=== PATIENT | male | born 1970 | race Caucasian/White ===

== ENCOUNTER 2016-10-19 21:08 | Inpatient (IN) | payer MEDICAID ==
[~2016-10-19] VITALS: Ht 188 cm; Wt 120.4 kg
[~2016-10-19 21:08] MED LIST: DICY10CA60 PO; ONDA4TAB35 PO
[2016-10-19] MEDS ORDERED: ONDANSETRON 4 MG INJ IV STA (21:13)
[2016-10-19] MEDS ORDERED: ASPIRIN 325 MG TAB PO STA (21:13)
[2016-10-19 21:34] LABS: ADD SCAN DIFF NO
[2016-10-19 21:37] LABS: BASOPHILS % 0.3 % (0.0-2.0); EOSINOPHILS # 0.1 10^3/ul (0.0-0.5); EOSINOPHILS % 0.9 % (0.0-7.0); HEMATOCRIT 48.4 % (42.0-52.0); LYMPHOCYTES # 4.5 10^3/ul (0.8-2.9); MEAN CORPUSCULAR HEMOGLOBIN 29.7 pg (29.0-33.0); MEAN CORPUSCULAR HGB CONC 35.1 g/dl (32.0-37.0); MEAN CORPUSCULAR VOLUME 84.6 fl (82.0-101.0); MEAN PLATELET VOLUME 10.3 fl (7.4-10.4); MONOCYTE # 0.8 10^3/ul (0.3-0.9); MONOCYTES % 6.5 % (0.0-11.0); NEUTROPHIL # 6.4 10^3/ul (1.6-7.5); PLATELET COUNT 385 10^3/UL (140-415); RED BLOOD COUNT 5.72 10^6/ul (4.70-6.10); RED CELL DISTRIBUTION WIDTH 11.9 % (11.5-14.5); WHITE BLOOD COUNT 11.8 10^3/ul (4.8-10.8)
[2016-10-19 21:56] LABS: INR 0.96; PARTIAL THROMBOPLASTIN TIME 20.9 Sec (25.0-35.0); PROTIME 12.8 Sec (12.2-14.2)
[2016-10-19 22:00] LABS: ANION GAP 15 (8-16); BLOOD UREA NITROGEN 15 mg/dl (7-20); CALCIUM 9.2 mg/dl (8.4-10.2); CARBON DIOXIDE 24 mmol/L (21-31); CHLORIDE 98 mmol/L (97-110); CREATININE 0.68 mg/dl (0.61-1.24); GLUCOSE 347 mg/dl (70-220); POTASSIUM 3.2 mmol/L (3.5-5.1); SODIUM 134 mmol/L (135-144)
[2016-10-19 22:08] LABS: B-TYPE NATRIURETIC PEPTIDE 25 PG/ML (0-125)
[2016-10-19 22:15] LABS: TROPONIN-I < 0.012 ng/ml (0.00-0.12)
--- NOTE | 2016-10-19 22:17 | RADRPT ---
PROCEDURE: XR Chest AP portable CLINICAL INDICATION: Chest pain TECHNIQUE: An AP portable radiograph of the chest was submitted. COMPARISON: 04/13/2015 FINDINGS: Support Hardware: None Cardiovascular: The cardiovascular silhouette appears unremarkable. Lung Ace: The lung ace appear clear with no nodule, alveolar infiltrate, or interstitial promi nence evident. Pleural Spaces: No pneumothorax or pleural effusion is identified. Osseous Structures: The osseous structures appear intact. Soft Tissues: The soft tissues appear generous. IMPRESSION: Stable and unremarkable portable chest. Physician [place] Date Time Electronically viewed and signed by Diana Christie Physician on 10/19/2016 22:17 /
[2016-10-19] MEDS ORDERED: BENA40TA41 PO (22:26)
[2016-10-19] MEDS ORDERED: MTF1000T PO (22:26)
[2016-10-19] MEDS ORDERED: BENA5TAB2 PO (22:26)
[2016-10-19] MEDS ORDERED: POTASSIUM CHLORIDE (SR) 20 MEQ TAB PO STA (23:59)
[2016-10-20] VITALS (13 sets, daily range): BP systolic 120–136; BP diastolic 69–82; PULSE 58–77; RESP 20; TEMP 98.4; Ht 188 cm; Wt 120.4 kg
[2016-10-20] MEDS ORDERED: SOD CHLORIDE 0.9% 1,000 ML IV ONE
--- NOTE | 2016-10-20 00:02 | ERA ---
ER Documentation Chief Complaint Date/Time DATE: 10/19/16 TIME: 23:56 Chief Complaint HAYES, DIAPHORESIS, N/V, CHEST PRESSURE 7/10 SINCE 6:30 PM HPI 46-year-old male with hypertension, diabetes, cholesterol presents with 2-1/2 hours of severe substernal chest pressure that is nonradiating, associated with diaphoresis, vomiting, shortness of breath. States that he was told he had a cardiac injury in the past. Was given 3 nitro doses in the ambulance which helped reduce the pain. Still feels chest pain and has just vomited. ROS All systems reviewed and are negative except as per history of present illness. Medications Home Meds Reported Medications Benazepril Hcl* (Benazepril Hcl*) 40 Mg Tablet, 40 MG PO DAILY, #30 TAB 10/19/16 Benazepril Hcl* (Benazepril Hcl*) 5 Mg Tablet, 5 MG PO DAILY, #30 TAB 10/19/16 Metformin* (Glucophage*) 1,000 Mg Tablet, 1000 MG PO BID, #60 TAB 10/19/16 Discontinued Scripts Ondansetron Hcl* (Zofran* ODT) 4 mg -ODT Tab.disper, 4 MG PO Q6 Y for NAUSEA AND /OR VOMITING, #30 TAB Prov:CARLIE ALEJANDRE MD 04/13/15 Dicyclomine Hcl* (Bentyl*) 10 Mg Capsule, 10 MG PO QID, #30 CAP Prov:CARLIE ALEJANDRE MD 04/13/15 Allergies Allergies: Coded Allergies: No Known Allergy (Unverified , 10/19/16) PMhx/Soc History of Surgery: Yes (L. FOOT) Anesthesia Reaction: No Hx Neurological Disorder: No Hx Respiratory Disorders: No Hx Cardiac Disorders: Yes (HTN, CARDIAC EVENT) Hx Psychiatric Problems: No Hx Miscellaneous Medical Probl: Yes (DM) Hx Alcohol Use: No Hx Substance Use: No Hx Tobacco Use: No Smoking Status: Never smoker Physical Exam Vitals Vital Signs Date Time Temp Pulse Resp B/P Pulse Ox O2 Delivery O2 Flow Rate FiO2 10/19/16 23:00 79 16 131/71 96 Nasal Cannula 3.0 10/19/16 21:22 Nasal Cannula 2 10/19/16 21:22 98.2 82 20 136/80 94 Physical Exam Const: [] Moderate distress, diaphoretic patient appearing very uncomfortable Head: Atraumatic Eyes: Normal Conjunctiva ENT: Normal External Ears, Nose and Mouth. Neck: Full range of motion..~ No meningismus. Resp: Clear to auscultation bilaterally Cardio: Regular rate and rhythm, no murmurs Abd: Soft, non tender, non distended. Normal bowel sounds Skin: No petechiae or rashes Back: No midline or flank tenderness Ext: No cyanosis, or edema Neur: Awake and alert and oriented 3, no focal deficits Psych: Normal Mood and Affect Result Diagram: 10/19/16212410/19/162124 Results 24 hrs Laboratory Tests Test 10/19/16 21:25 White Blood Count 11.810^3/ul Red Blood Count 5.7210^6/ul Hemoglobin 17.0g/dl Hematocrit 48.4% Mean Corpuscular Volume 84.6fl Mean Corpuscular Hemoglobin 29.7pg Mean Corpuscular Hemoglobin Concent 35.1g/dl Red Cell Distribution Width 11.9% Platelet Count 53092^3/UL Mean Platelet Volume 10.3fl Neutrophils % 54.0% Lymphocytes % 38.0% Monocytes % 6.5% Eosinophils % 0.9% Basophils % 0.3% Nucleated Red Blood Cells % 0.0/100WBC Neutrophils # 6.410^3/ul Lymphocytes # 4.510^3/ul Monocytes # 0.810^3/ul Eosinophils # 0.110^3/ul Basophils # 0.010^3/ul Nucleated Red Blood Cells # 0.010^3/ul Prothrombin Time 12.8Sec Prothrombin Time Ratio 1.0 INR International Normalized Ratio 0.96 Activated Partial Thromboplast Time 20.9Sec Sodium Level 134mmol/L Potassium Level 3.2mmol/L Chloride Level 98mmol/L Carbon Dioxide Level 24mmol/L Anion Gap 15 Blood Urea Nitrogen 15mg/dl Creatinine 0.68mg/dl Glucose Level 347mg/dl Calcium Level 9.2mg/dl Troponin I < 0.012ng/ml B-Type Natriuretic Peptide 25PG/ML Current Medications Medications (Trade) Dose Ordered Sig/Stacy Route PRN Reason Start Time Stop Time Status Last Admin Dose Admin Aspirin (Aspirin) 325 mg ONCE STAT PO 10/19/16 21:13 10/19/16 21:14 DC 5/22/17 21:32 Ondansetron HCl (Zofran Inj) 4 mg ONCE STAT IV 10/19/16 21:13 10/19/16 21:14 DC 10/19/16 21:32 Procedures/MDM Acute chest pain with multiple comorbidities and associated symptoms. Patient was given aspirin put on monitors. Initial troponin is negative. No ischemia on EKG. Chest pain reproduced with nitro then relieved. Mild leukocytosis without signs of infection. Patient remained stable on the monitor. Was given potassium by mouth for hypokalemia and liter of normal saline for hyperglycemia. on day will be admitting to telemetry for further workup and monitoring. EKG interpretation: Normal sinus rhythm rate of 69, normal axis, T-wave flattening with mild inversion in anterolateral leads. senior litigation paralegal interpretation: Normal sinus rhythm without arrhythmia Chest x-ray interpretation: I see no acute process, no vitamins tandem, no pneumothorax, no pulmonary edema, no fracture Departure Diagnosis: Primary Impression: Chest pain Additional Impressions: Hyperglycemia due to type 2 diabetes mellitus Obesity (BMI 30-39.9) Nausea and vomiting Condition: Stable ANITHA TEAGUE DO October 20, 2016 00:02
[2016-10-20] MEDS ORDERED: ONDANSETRON 4 MG INJ IV PRN ×2 (01:00→02:30)
[2016-10-20] MEDS ORDERED: ACETAMINOPHEN 325 MG TAB PO PRN (01:00)
[2016-10-20] MEDS ORDERED: morphine 10 MG INJ IM PRN (02:30)
[2016-10-20] MEDS ORDERED: NITROGLYCERIN (SL) 0.4 MG TAB SL PRN (02:30)
[2016-10-20] MEDS ORDERED: INSULIN GLARGINE [LANtus] 3 ML PEN SC SCH ×2 (02:30→20:00)
[2016-10-20] MEDS ORDERED: DEXTROSE 50% 50 ML SYRINGE IV PRN ×2 (03:00)
[2016-10-20] MEDS ORDERED: GLUCAGON 1 MG INJ IM PRN (03:00)
[2016-10-20] MEDS ORDERED: GLUCOSE GEL 15 GRAM TUBE PO PRN ×2 (03:00)
[2016-10-20] MEDS ORDERED: GLUCOSE GEL 15 GRAM TUBE BUCCAL PRN (03:00)
[2016-10-20 03:52] LABS: ADD SCAN DIFF NO
[2016-10-20 03:54] LABS: BASOPHILS % 0.2 % (0.0-2.0); EOSINOPHILS % 0.1 % (0.0-7.0); HEMATOCRIT 46.2 % (42.0-52.0); LYMPHOCYTES # 1.6 10^3/ul (0.8-2.9); MEAN CORPUSCULAR HEMOGLOBIN 30.1 pg (29.0-33.0); MEAN CORPUSCULAR HGB CONC 34.6 g/dl (32.0-37.0); MEAN CORPUSCULAR VOLUME 86.8 fl (82.0-101.0); MEAN PLATELET VOLUME 10.3 fl (7.4-10.4); MONOCYTE # 0.5 10^3/ul (0.3-0.9); MONOCYTES % 3.7 % (0.0-11.0); NEUTROPHIL # 10.4 10^3/ul (1.6-7.5); NEUTROPHILS % 82.7 % (39.0-77.0); PLATELET COUNT 309 10^3/UL (140-415); RED BLOOD COUNT 5.32 10^6/ul (4.70-6.10); RED CELL DISTRIBUTION WIDTH 11.9 % (11.5-14.5); WHITE BLOOD COUNT 12.6 10^3/ul (4.8-10.8)
[2016-10-20 04:17] LABS: POTASSIUM 4.5 mmol/L (3.5-5.1)
[2016-10-20 04:20] LABS: CREATININE 0.59 mg/dl (0.61-1.24)
[2016-10-20 04:21] LABS: CALCIUM 8.4 mg/dl (8.4-10.2); CHOL/HDL RATIO 3.4 RATIO; CREATINE KINASE 64 IU/L (23-200); MAGNESIUM 1.7 mg/dl (1.7-2.5); PHOSPHORUS 4.4 mg/dl (2.5-4.9)
[2016-10-20 04:34] LABS: TROPONIN-I < 0.012 ng/ml (0.00-0.12)
--- NOTE | 2016-10-20 05:35 | HP ---
DATE OF ADMISSION: 10/20/2016 CHIEF COMPLAINT: Chest pain. HISTORY OF PRESENT ILLNESS: The patient is a 46-year-old male with a history of hypertension, diabe claudette, and dyslipidemia who presented to the emergency department complaining of chest pain since yest erday. He actually pointed close to his epigastric area to show where he was having chest pain. He described it as pressure-like, nonradiating, with no associated nausea, vomiting, or diaphoresis. He said he has been having chest pain off and on for a while, and actually he stated that 5 months a go he was admitted at [facility] for similar chest pain, and at that time, he said he was vilma d he had "a little heart attack." He had a 2D echo but denied ever having had a cardiac catheteriza tion. On further questioning, he stated that he periodically has been experiencing acid reflux symp toms, and actually, over the past few days, he did have acid reflux symptoms. He stated he used to take aspirin in the past but he was told to stop taking it by his PCP 7 months ago for a reason that he does not know. Denied a history of gastrointestinal bleed. When he presented to the ER on this admission, his vitals were stable. Laboratory shows WBC of 11.8 . Sodium 134, potassium 3.2, and glucose 347. Otherwise CBC and BMP are within normal limits. His first troponin is negative, and a chest x-ray shows clear lungs. The cardiovascular silhouette cindi ears unremarkable as well. He was given aspirin, potassium, Tylenol, and 1 liter of normal saline a nd admitted for further management. Of note, the patient did receive sublingual nitroglycerin by EM S with minimal improvement in his chest pain. He is now complaining of some headache. REVIEW OF SYSTEMS: A 12-point review was performed and is negative except as mentioned in HPI. PAST MEDICAL HISTORY: As per HPI. PAST SURGICAL HISTORY: He said he has had abdominal hernia repair when he was 7 years old. SOCIAL HISTORY: He smoked a pack a week for over 10 years, but he quit 10 years ago. He drinks alc ohol occasionally. He denied a history of illicit drug use. FAMILY HISTORY: His grandmother had some type of heart disease when she was in her mid 50s ALLERGIES: NO KNOWN DRUG ALLERGIES. HOME MEDICATIONS: 1. Benazepril. 2. Metformin. PHYSICAL EXAMINATION: VITAL SIGNS: Stable. GENERAL: No acute distress, answering questions appropriately. HEENT: No obvious head deformity. Pupils are reactive to light. Extraocular muscles intact. CARDIOVASCULAR: Regular rate and rhythm. No extra sounds. LUNGS: Clear. ABDOMEN: Soft with minimal tenderness in the epigastric area with no guarding, no rebound tendernes s, no rigidity. There are positive bowel sounds. EXTREMITIES: No edema. There is some hyperpigmentation noted on his bilateral shins. LABORATORY DATA: Pertinent positive results as mentioned in the HPI. IMPRESSION: 1. Chest pain, need to rule out acute coronary syndrome. 2. Diabetes with hyperglycemia. 3. History of dyslipidemia. 4. Hypokalemia. 5. Mild hyponatremia. 6. Mild leukocytosis. 7. Gastroesophageal reflux disease. PLAN: Continue telemetry monitoring. He will be placed on aspirin, statin, beta mustapha, and we wi ll continue his benazepril. We will obtain a 2D echo. Trend his troponin. So far, the first one w as negative. His EKG showed normal sinus rhythm with a rate of 69 with T wave flattening as well as inversion in anterolateral leads. We will place a cardiology consult. We will check A1c, fasting lipids, and TSH. He will be placed on insulin for his diabetes, and we will monitor his blood gluco se closely, especially given presentation of hyperglycemia. The patient also with acid reflux sympt oms, and as such, I will start him on a PPI. I advised him and his daughter who was at the bedside to follow up with his primary care doctor for workup of GERD including H. pylori as well as a referr al for EGD. Further workup and management per clinical course. Dictated By: MARIE HAND/LEONOR Conf#: [id number] DID#: [id number]
[2016-10-20 05:52] LABS: THYROID STIMULATING HORMONE 0.265 MIU/L (0.465-4.680)
[2016-10-20] MEDS ORDERED: INSULIN ASPART [NOVOLOG] 3 ML PEN SC SCH ×2 (07:55)
[2016-10-20] MEDS: ASPIRIN 81 MG TAB PO SCH (08:17)
[2016-10-20] MEDS: METOPROLOL 25 MG TAB PO SCH ×2 (08:17→20:20)
[2016-10-20] MEDS: FAMOTIDINE 20 MG TAB PO SCH (08:18)
[2016-10-20] MEDS: HEPARIN 5,000 UNIT/0.5 ML VIAL SC SCH ×2 (08:21→20:37)
[2016-10-20 10:10] LABS: CREATINE KINASE 74 IU/L (23-200)
[2016-10-20 10:34] LABS: CK-MB 1.44 ng/ml (0.0-2.4); TROPONIN-I < 0.012 ng/ml (0.00-0.12)
[2016-10-20] MEDS: INSULIN ASPART [NOVOLOG] 3 ML PEN SC SCH ×4 (12:11→20:26)
--- NOTE | 2016-10-20 12:51 | RADRPT ---
Echocardiogram Report Patient Name: MADELYN RIVAS Gender: Male Date: 1970 Study Date: 20-Oct-2016 Operations Coordinator: Fuentes Keller [facility] Location: [id number] Ref. Physician: BOO JOHNSON Quality: Adequate Procedures: Transthoracic echocardiogram with complete 2D, M-Mode, and doppler examination. Indications: Chest Pain. 2D/M Mode Doppler Measurement Value Normal Ranges Measurement Value Normal Ranges LVIDd 2D 4.5 3.5 - 5.6 cm AV Peak Bob 1.2 m/sec LVIDs 2D 3.4 2.1 - 4.1 cm AV Peak PG 6.2 mmHg LVPWd 2D 1.1 0.6 - 1.1 cm LVOT Peak Bob 1.1 m/sec IVSd 2D 1.1 0.6 - 1.1 cm LVOT Peak PG 4.5 mmHg AoR Diam 2D 3.1 2.0 - 3.7 cm MV E Peak Bob 0.9 m/sec EDV 2D 94.3 cm3 MV A Peak Bob 0.7 m/sec ESV 2D 40.4 cm3 MV E/A 1.3 LA Dimen 2D 4.0 2.3 - 4.0 cm MV Decel Time 207 msec MV Decel Mobile 4 MV E/A 1.3 TR Peak Bob 2.1 m/sec TR Peak PG 17.1 mmHg RVSP 20.0 mmHg Findings Left Ventricle: Normal left ventricular systolic function. Normal left ventricular cavity size. Normal left ventricular wall thickness. Ejection fraction is visually estimated at 60 %. Abnormal Diastolic Function. Right Ventricle: Normal right ventricular size. Normal right ventricular systolic function. Left Atrium: The left atrium is normal in size. Right Atrium: The right atrium is normal in size. Mitral Valve: Normal appearance and function of the mitral valve with trace physiologic regurgitation. Aortic Valve: Normal appearance of the aortic valve. No significant aortic stenosis or insufficiency. Tricuspid Valve: Normal appearance of the tricuspid valve. Estimated peak PA systolic pressure 20 mmHg. There is trace tricuspid regurgitation. Pulmonic Valve: Normal pulmonic valve appearance. Pericardium: Normal pericardium with no significant pericardial effusion. Aorta: Normal aortic root. IVC: Normal size and normal respiratory collapse consistent with normal right atrial pressure. Conclusions Normal left ventricular systolic function. Normal left ventricular cavity size. Normal left ventricular wall thickness. Ejection fraction is visually estimated at 60 %. Abnormal Diastolic Function. Normal right ventricular size. Normal right ventricular systolic function. The left atrium is normal in size. The right atrium is normal in size. No significant valvular stenosis or regurgitation seen. Normal pericardium with no significant pericardial effusion. Electronically Signed By: Boo Johnson 20-Oct-2016 12:50:21 -0700 Patient Name: MADELYN RIVAS Study Date: 20-Oct-2016 [id number]
--- NOTE | 2016-10-20 12:59 | CONS ---
Date/Time of Note Date/Time of Note DATE: 10/20/16 TIME: 12:51 Assessment/Plan Assessment/Plan Additional Assessment/Plan Headache, nausea, vomiting and chest pain Preserved ejection fraction Uncontrolled diabetes Hypertension Dyslipidemia Obesity -Patient with symptoms of headache, nausea and vomiting yesterday and developed sharp chest discomfort after multiple episodes of vomiting. He denies exertional chest pain or shortness of breath prior to this episode. Serial cardiac enzymes remain negative, ECG without significant ischemic abnormalities , echocardiogram with preserved ejection fraction. His symptoms do not appear cardiac in origin. Of note, patient with hemoglobin A1c of 13. Would recommend aggressive medical management of his risk factors. Otherwise given history, negative workup so far and no further symptoms, no further inpatient cardiac workup needed at the current time. Consultation Date/Type/Reason Admit Date/Time October 20, 2016 at 00:36 Type of Consultation: cv Reason for Consultation Cardiac evaluation Hx of Present Illness This is a 46-year-old male with past medical history of diabetes, hypertension, dyslipidemia who presents to the emergency room with multiple complaints. Patient woke up yesterday morning with a severe headache. Headache progressed throughout the day. Patient works as a mechanical fitter. Given his headache, he went home at an earlier time. After eating a meal, patient developed severe diaphoresis and nausea. Patient then began vomiting multiple times and brought up his food. Denied symptoms of chills. He developed a burning-like and sharp chest discomfort in his mid chest. The symptoms began after his vomiting. The symptoms were exacerbated by deep breaths. He had a second episode of vomiting and because of this he called paramedics and came to the emergency room. Otherwise, he denies exertional chest pain or shortness of breath. He is quite active, working a mechanical fitter. He tells me he is able to carry heavy objects and work without symptoms of exertional chest pain or shortness of breath. At times , he would get symptoms of chest pain with deep inspiration but not associated with activity. He currently feels much better with no further episodes of chest pain. 12 point review of systems was performed with all pertinent positives and negatives mentioned above and all else is negative Past Medical History Medical History: diabetes, high cholesterol, hypertension Past Surgical History Hernia repair Foot surgery Family History Significant Family History: no pertinent family hx Social History Smoking Status: Former smoker Other Social History Works as a mechanical fitter Exam/Review of Systems Vital Signs Vitals Vital Signs Date Time Temp Pulse Resp B/P Pulse Ox O2 Delivery O2 Flow Rate FiO2 10/20/16 12:33 59 10/20/16 11:43 97.9 20 134/75 96 10/20/16 07:35 Nasal Cannula 2.0 Intake and Output 10/19/16 10/19/16 10/20/16 15:00 23:00 07:00 Intake Total 190 ml Balance 190 ml Exam No apparent distress Constitutional: alert, obese, oriented Head: normocephalic Neck: supple Respiratory: clear to auscultation, normal air movement Cardiovascular: other (S1-S2 heard, no murmurs appreciated), regular rate and rhythm Gastrointestinal: bowel sounds, non-tender, other (No guarding), soft Extremities: other (No edema) Results Result Diagram: 10/20/16 0345 10/20/16 0345 Results 24 hrs Laboratory Tests Test 10/19/16 21:25 10/20/16 03:45 10/20/16 04:21 10/20/16 06:34 White Blood Count 11.8 H 12.6 H Red Blood Count 5.72 5.32 Hemoglobin 17.0 16.0 Hematocrit 48.4 46.2 Mean Corpuscular Volume 84.6 86.8 Mean Corpuscular Hemoglobin 29.7 30.1 Mean Corpuscular Hemoglobin Concent 35.1 34.6 Red Cell Distribution Width 11.9 11.9 Platelet Count 385 309 Mean Platelet Volume 10.3 10.3 Neutrophils % 54.0 82.7 H Lymphocytes % 38.0 13.0 L Monocytes % 6.5 3.7 Eosinophils % 0.9 0.1 Basophils % 0.3 0.2 Nucleated Red Blood Cells % 0.0 0.0 Neutrophils # 6.4 10.4 H Lymphocytes # 4.5 H 1.6 Monocytes # 0.8 0.5 Eosinophils # 0.1 0.0 Basophils # 0.0 0.0 Nucleated Red Blood Cells # 0.0 0.0 Prothrombin Time 12.8 Prothrombin Time Ratio 1.0 INR International Normalized Ratio 0.96 Activated Partial Thromboplast Time 20.9 L Sodium Level 134 L 136 Potassium Level 3.2 L 4.5 Chloride Level 98 99 Carbon Dioxide Level 24 28 Anion Gap 15 14 Blood Urea Nitrogen 15 14 Creatinine 0.68 0.59 L Glucose Level 347 H 274 H Calcium Level 9.2 8.4 Troponin I < 0.012 < 0.012 < 0.012 B-Type Natriuretic Peptide 25 Hemoglobin A1c 13.3 H Phosphorus Level 4.4 Magnesium Level 1.7 Creatine Kinase 64 Creatine Kinase Index 1.9 Creatinine Kinase MB (Mass) 1.20 Triglycerides Level 75 Cholesterol Level 170 LDL Cholesterol, Calculated 106 HDL Cholesterol 49 Cholesterol/HDL Ratio 3.4 Thyroid Stimulating Hormone (TSH) 0.265 L Bedside Glucose 229 H Test 10/20/16 07:34 10/20/16 09:40 10/20/16 12:02 Bedside Glucose 214 255 H Creatine Kinase 74 Creatine Kinase Index 1.9 Creatinine Kinase MB (Mass) 1.44 Troponin I < 0.012 Medications Medications Current Medications Metoprolol Tartrate (Lopressor) 12.5 mg BID PO Last administered on 10/20/16 08:17; Admin Dose 12.5 MG; Start 10/20/16 at 09:00 Heparin Sodium (Porcine) (Heparin (5000 Units/0.5 ml)) 5,000 unit BID SC Last administered on 10/20/16 08:21; Admin Dose 5,000 UNIT; Start 10/20/16 at 09:00 Ondansetron HCl (Zofran Inj) 4 mg Q6H PRN IV NAUSEA AND/OR VOMITING; Start at 02:30 Morphine Sulfate (morphine) 2 mg Q4H PRN IM PAIN; Start 10/20/16 at 02:30 Aspirin (Aspirin) 81 mg DAILY PO Last administered on 10/20/16 08:17; Admin Dose 81 MG; Start 10/20/16 at 09:00 Diagnostic Test (Pha) (Accu-Chek) 1 ea 02 XX ; Start 10/21/16 at 02:00 Nitroglycerin (Nitroglycerin (Sl Tab) 0.4 Mg) 1 tab Q5M PRN SL ANGINA; Start at 02:30 Miscellaneous Information 1 ea NOTE XX ; Start 10/20/16 at 03:00 Glucose (Glutose) 15 gm Q15M PRN PO DECREASED GLUCOSE; Start 10/20/16 at 03:00 Glucose (Glutose) 22.5 gm Q15M PRN PO DECREASED GLUCOSE; Start 10/20/16 at 03: 00 Dextrose (D50w Syringe) 25 ml Q15M PRN IV DECREASED GLUCOSE; Start 10/20/16 at 03:00 Dextrose (D50w Syringe) 50 ml Q15M PRN IV DECREASED GLUCOSE; Start 10/20/16 at 03:00 Glucagon (Glucagen) 1 mg Q15M PRN IM DECREASED GLUCOSE; Start 10/20/16 at 03:00 Glucose (Glutose) 15 gm Q15M PRN BUCCAL DECREASED GLUCOSE; Start 10/20/16 at 03 :00 Famotidine (Pepcid) 20 mg DAILY PO Last administered on 10/20/16t 08:18; Admin Dose 20 MG; Start 10/20/16 at 09:00 Insulin Glargine (Lantus) 21 unit DAILY@20 SC ; Start 10/20/16 at 20:00 Procedures Procedures ECG demonstrates sinus rhythm, normal QRS duration, nonspecific STT wave abnormalities Boo Prieto DO October 20, 2016 12:59
[2016-10-21] VITALS (10 sets, daily range): BP systolic 119–144; BP diastolic 70–82; PULSE 55–62; RESP 20
[2016-10-21] MEDS ORDERED: ACCU-CHEK XX SCH ×2 (02:00)
[2016-10-21] MEDS: ASPIRIN 81 MG TAB PO SCH (08:11)
[2016-10-21] MEDS: FAMOTIDINE 20 MG TAB PO SCH (08:11)
[2016-10-21] MEDS: INSULIN ASPART [NOVOLOG] 3 ML PEN SC SCH ×6 (08:14→17:33)
[2016-10-21] MEDS: HEPARIN 5,000 UNIT/0.5 ML VIAL SC SCH (08:15)
[2016-10-21] MEDS: METOPROLOL 25 MG TAB PO SCH (08:16)
[2016-10-21 08:58] LABS: ADD SCAN DIFF NO
[2016-10-21 09:02] LABS: BASOPHILS % 0.1 % (0.0-2.0); EOSINOPHILS # 0.1 10^3/ul (0.0-0.5); EOSINOPHILS % 1.3 % (0.0-7.0); HEMOGLOBIN 16.2 g/dl (14.0-18.0); LYMPHOCYTES # 2.1 10^3/ul (0.8-2.9); MEAN CORPUSCULAR HEMOGLOBIN 29.2 pg (29.0-33.0); MEAN CORPUSCULAR HGB CONC 33.1 g/dl (32.0-37.0); MEAN CORPUSCULAR VOLUME 88.3 fl (82.0-101.0); MEAN PLATELET VOLUME 10.6 fl (7.4-10.4); MONOCYTE # 0.5 10^3/ul (0.3-0.9); MONOCYTES % 6.8 % (0.0-11.0); NEUTROPHIL # 4.2 10^3/ul (1.6-7.5); NEUTROPHILS % 61.5 % (39.0-77.0); PLATELET COUNT 307 10^3/UL (140-415); RED BLOOD COUNT 5.55 10^6/ul (4.70-6.10); RED CELL DISTRIBUTION WIDTH 12.1 % (11.5-14.5); WHITE BLOOD COUNT 6.9 10^3/ul (4.8-10.8)
[2016-10-21 09:28] LABS: POTASSIUM 3.9 mmol/L (3.5-5.1)
[2016-10-21 09:30] LABS: CREATININE 0.61 mg/dl (0.61-1.24)
[2016-10-21 09:31] LABS: CALCIUM 8.6 mg/dl (8.4-10.2)
--- NOTE | 2016-10-21 11:09 | CONS ---
Date/Time of Note Date/Time of Note DATE: 10/21/16 TIME: 11:07 Assessment/Plan Assessment/Plan Additional Assessment/Plan Headache, nausea, vomiting and chest pain Preserved ejection fraction Uncontrolled diabetes Hypertension Dyslipidemia Obesity -Patient denies any further episodes of chest pain. Denies any shortness of breath. Given findings mentioned in initial consultation, and patient with no further symptoms, no further inpatient cardiac workup needed at the current time. Consultation Date/Type/Reason Admit Date/Time October 20, 2016 at 00:36 Initial Consult Date Type of Consultation: cv 24 HR Interval Summary Free Text/Dictation Patient denies any further episodes of chest pain. Denies shortness of breath, nausea Exam/Review of Systems Vital Signs Vitals Vital Signs Date Time Temp Pulse Resp B/P Pulse Ox O2 Delivery O2 Flow Rate FiO2 10/21/16 08:14 60 10/21/16 07:26 97.7 20 135/82 95 10/20/16 20:10 Nasal Cannula 1.0 Intake and Output 10/20/16 10/20/16 10/21/16 15:00 23:00 07:00 Intake Total 1000 ml 420 ml Balance 1000 ml 420 ml Exam No apparent distress Constitutional: alert, obese, oriented Head: normocephalic Neck: supple Respiratory: other (Coarse breath sounds bilaterally, no wheezing) Cardiovascular: other (S1-S2 heard), regular rate and rhythm Gastrointestinal: bowel sounds, non-tender, other (No guarding), soft Extremities: other (No edema) Results Result Diagram: 10/21/16 0714 10/21/16 0714 Results 24 hrs Laboratory Tests Test 10/20/16 12:02 10/20/16 12:05 10/20/16 17:32 10/20/16 20:00 Bedside Glucose 255 H 195 247 H Troponin I < 0.012 Test 10/21/16 03:50 10/21/16 07:14 10/21/16 08:10 Bedside Glucose 230 H 185 White Blood Count 6.9 # Red Blood Count 5.55 Hemoglobin 16.2 Hematocrit 49.0 Mean Corpuscular Volume 88.3 Mean Corpuscular Hemoglobin 29.2 Mean Corpuscular Hemoglobin Concent 33.1 Red Cell Distribution Width 12.1 Platelet Count 307 Mean Platelet Volume 10.6 H Neutrophils % 61.5 Lymphocytes % 30.0 Monocytes % 6.8 Eosinophils % 1.3 Basophils % 0.1 Nucleated Red Blood Cells % 0.0 Neutrophils # 4.2 Lymphocytes # 2.1 Monocytes # 0.5 Eosinophils # 0.1 Basophils # 0.0 Nucleated Red Blood Cells # 0.0 Sodium Level 137 Potassium Level 3.9 Chloride Level 99 Carbon Dioxide Level 28 Anion Gap 14 Blood Urea Nitrogen 14 Creatinine 0.61 Glucose Level 215 Calcium Level 8.6 Medications Medications Current Medications Metoprolol Tartrate (Lopressor) 12.5 mg BID PO Last administered on 10/20/16 08:17; Admin Dose 12.5 MG; Start 10/20/16 at 09:00 Heparin Sodium (Porcine) (Heparin (5000 Units/0.5 ml)) 5,000 unit BID SC Last administered on 10/21/16 08:15; Admin Dose 5,000 UNIT; Start 10/20/16 at 09:00 Ondansetron HCl (Zofran Inj) 4 mg Q6H PRN IV NAUSEA AND/OR VOMITING; Start at 02:30 Morphine Sulfate (morphine) 2 mg Q4H PRN IM PAIN; Start 10/20/16 at 02:30 Aspirin (Aspirin) 81 mg DAILY PO Last administered on 10/21/16 08:11; Admin Dose 81 MG; Start 10/20/16 at 09:00 Diagnostic Test (Pha) (Accu-Chek) 1 ea 02 XX Last administered on 10/21/16 03: 54; Admin Dose 1 EA; Start 10/21/16 at 02:00 Nitroglycerin (Nitroglycerin (Sl Tab) 0.4 Mg) 1 tab Q5M PRN SL ANGINA; Start at 02:30 Miscellaneous Information 1 ea NOTE XX ; Start 10/20/16 at 03:00 Glucose (Glutose) 15 gm Q15M PRN PO DECREASED GLUCOSE; Start 10/20/16 at 03:00 Glucose (Glutose) 22.5 gm Q15M PRN PO DECREASED GLUCOSE; Start 10/20/16 at 03: 00 Dextrose (D50w Syringe) 25 ml Q15M PRN IV DECREASED GLUCOSE; Start 10/20/16 at 03:00 Dextrose (D50w Syringe) 50 ml Q15M PRN IV DECREASED GLUCOSE; Start 10/20/16 at 03:00 Glucagon (Glucagen) 1 mg Q15M PRN IM DECREASED GLUCOSE; Start 10/20/16 at 03:00 Glucose (Glutose) 15 gm Q15M PRN BUCCAL DECREASED GLUCOSE; Start 10/20/16 at 03 :00 Famotidine (Pepcid) 20 mg DAILY PO Last administered on 10/21/16t 08:11; Admin Dose 20 MG; Start 10/20/16 at 09:00 Insulin Glargine (Lantus) 25 unit DAILY@20 SC ; Start 10/21/16 at 20:00 Boo Prieto DO October 21, 2016 11:09
[2016-10-21] MEDS ORDERED: ASPI81TA3 PO (11:38)
[2016-10-21] MEDS ORDERED: METO-448 PO (11:38)
[2016-10-21] MEDS ORDERED: NOVO3I SC (11:38)
[2016-10-21] MEDS ORDERED: LANT3I SC (11:38)
--- NOTE | 2016-10-21 16:10 | PDOCDIS ---
Discharge Instructions DIAGNOSIS Discharge Diagnosis: 1. Chest pain 2. Diabetes 2. Dyspnea 4. GERD CONDITION Patient Condition: Stable FOLLOW UP/APPOINTMENTS Appointments 1. Follow up with your primary care provider in one week REESE VASQUEZ October 21, 2016 16:10
--- NOTE | 2016-10-21 16:13 | PN ---
Date/Time of Note Date/Time of Note DATE: 10/21/16 TIME: 16:10 Assessment/Plan VTE Prophylaxis VTE Prophylaxis Intervention: SCD's Lines/Catheters IV [facility]ter Type (from [facility] Saline Lock Urinary Cath still in place: No Assessment/Plan Chief Complaint/Hosp Course 1. Chest pain. So troponins negative. Patient was seen by mail manager. Of note patient did have echocardiogram with ejection fraction of 60%. No further workup recommended per mail manager. 2. Diabetes. Patient noted with A1c of 13.3. Patient was seen by auto transmission technician. Will adjust patient's insulin for better glucose control. 3. History of dyslipidemia. Appears stable at this time. Continue low-fat low -cholesterol diet. 4. Obesity. Weight reduction was advised 5. History of GERD. Continue on H2 [place]ha 6. Essential hypertension. Continue antihypertensives and adjust as needed Disposition and plan: Still noted with high glucose. Will adjust insulin regimen for better control. d/c when medically stable Discussed plan of care with Dr. Tinoco Problems: Subjective 24 Hr Interval Summary Free Text/Dictation No reports of chest pain. Comfortable at present Exam/Review of Systems Vital Signs Vitals Vital Signs Date Time Temp Pulse Resp B/P Pulse Ox O2 Delivery O2 Flow Rate FiO2 10/21/16 15:37 98.5 66 20 131/78 95 10/20/16 20:10 Nasal Cannula 1.0 Intake and Output 10/20/16 10/20/16 10/21/16 15:00 23:00 07:00 Intake Total 1000 ml 420 ml Balance 1000 ml 420 ml Exam Constitutional: alert, obese, oriented Head: normocephalic Eyes: nl conjunctiva Neck: supple, No jvd Respiratory: clear to auscultation, normal air movement Cardiovascular: regular rate and rhythm Gastrointestinal: non-tender, soft Musculoskeletal: nl extremities to inspection, nl gait and stance Extremities: normal pulses Neurological: [employer]YW[employer]PER[employer]OR II-XII intact, nl mental status, nl speech Results Result Diagram: 10/21/1614 10/21/1614 Results 24 hrs Laboratory Tests Test 10/20/16 17:32 10/20/16 20:00 10/21/16 03:50 10/21/16 07:14 Bedside Glucose 195 247 H 230 H White Blood Count 6.9 # Red Blood Count 5.55 Hemoglobin 16.2 Hematocrit 49.0 Mean Corpuscular Volume 88.3 Mean Corpuscular Hemoglobin 29.2 Mean Corpuscular Hemoglobin Concent 33.1 Red Cell Distribution Width 12.1 Platelet Count 307 Mean Platelet Volume 10.6 H Neutrophils % 61.5 Lymphocytes % 30.0 Monocytes % 6.8 Eosinophils % 1.3 Basophils % 0.1 Nucleated Red Blood Cells % 0.0 Neutrophils # 4.2 Lymphocytes # 2.1 Monocytes # 0.5 Eosinophils # 0.1 Basophils # 0.0 Nucleated Red Blood Cells # 0.0 Sodium Level 137 Potassium Level 3.9 Chloride Level 99 Carbon Dioxide Level 28 Anion Gap 14 Blood Urea Nitrogen 14 Creatinine 0.61 Glucose Level 215 Calcium Level 8.6 Test 10/21/16 08:10 10/21/16 12:26 Bedside Glucose 185 177 Medications Medications Current Medications Metoprolol Tartrate (Lopressor) 12.5 mg BID PO Last administered on 10/20/16 08:17; Admin Dose 12.5 MG; Start 10/20/16 at 09:00 Heparin Sodium (Porcine) (Heparin (5000 Units/0.5 ml)) 5,000 unit BID SC Last administered on 10/21/16 08:15; Admin Dose 5,000 UNIT; Start 10/20/16 at 09:00 Ondansetron HCl (Zofran Inj) 4 mg Q6H PRN IV NAUSEA AND/OR VOMITING; Start at 02:30 Morphine Sulfate (morphine) 2 mg Q4H PRN IM PAIN; Start 10/20/16 at 02:30 Aspirin (Aspirin) 81 mg DAILY PO Last administered on 10/21/16 08:11; Admin Dose 81 MG; Start 10/20/16 at 09:00 Diagnostic Test (Pha) (Accu-Chek) 1 ea 02 XX Last administered on 10/21/16 03: 54; Admin Dose 1 EA; Start 10/21/16 at 02:00 Nitroglycerin (Nitroglycerin (Sl Tab) 0.4 Mg) 1 tab Q5M PRN SL ANGINA; Start at 02:30 Miscellaneous Information 1 ea NOTE XX ; Start 10/20/16 at 03:00 Glucose (Glutose) 15 gm Q15M PRN PO DECREASED GLUCOSE; Start 10/20/16 at 03:00 Glucose (Glutose) 22.5 gm Q15M PRN PO DECREASED GLUCOSE; Start 10/20/16 at 03: 00 Dextrose (D50w Syringe) 25 ml Q15M PRN IV DECREASED GLUCOSE; Start 10/20/16 at 03:00 Dextrose (D50w Syringe) 50 ml Q15M PRN IV DECREASED GLUCOSE; Start 10/20/16 at 03:00 Glucagon (Glucagen) 1 mg Q15M PRN IM DECREASED GLUCOSE; Start 10/20/16 at 03:00 Glucose (Glutose) 15 gm Q15M PRN BUCCAL DECREASED GLUCOSE; Start 10/20/16 at 03 :00 Famotidine (Pepcid) 20 mg DAILY PO Last administered on 10/21/16t 08:11; Admin Dose 20 MG; Start 10/20/16 at 09:00 Insulin Glargine (Lantus) 25 unit DAILY@20 SC ; Start 10/21/16 at 20:00 REESE VASQUEZ October 21, 2016 16:13
[2016-10-21] MEDS ORDERED: INSULIN GLARGINE [LANtus] 3 ML PEN SC SCH (20:00)
== END 2016-10-21 19:04 | disposition home or self-care (01) | DRG 313 ==
LOC: E/R 21:08 → TEL 10-20 00:36
PROVIDERS: ADMIT Internal Medicine; ATTEND Internal Medicine
DX: R07.9 Chest pain, unspecified (principal); E11.65 Type 2 diabetes mellitus with hyperglycemia; I10 Essential (primary) hypertension; E87.1 Hypo-osmolality and hyponatremia; E78.5 Hyperlipidemia, unspecified; E87.6 Hypokalemia; D72.829 Elevated white blood cell count, unspecified; K21.9 Gastro-esophageal reflux disease without esophagitis; E66.9 Obesity, unspecified; Z68.34 Body mass index [BMI] 34.0-34.9, adult; R51 Headache
CPT/HCPCS: 71010; 80048; 80061; 82550; 82553; 82962; 83036; 83735; 83880; 84100; 84443; 84484; 85025; 85610; 85730; 93005; 93306; 96374; J1644; J1815; J2405; J7030